=== PATIENT | female | born 1995 | race Caucasian/White ===

== ENCOUNTER 2018-11-18 10:49 | Inpatient (IN) | payer BC, OTHER ==
--- OUTSIDE RECORDS SUMMARY | 2018-11-18 17:56 | XMS REPORT ---
:1995 [facility] Address [address] [place] [address] Dr. Fuchs. [address] [place] [id number] Care Team Providers Name Role Phone Unavailable Unavailable Unavailable Problems This patient has no known problems. Allergies, Adverse Reactions, Alerts This patient has no known allergies or adverse reactions. Medications This patient has no known medications.
[2018-11-18] MEDS ORDERED: Ringers Lactate 1,000 ML IV PRN (18:26)
[2018-11-18] MEDS ORDERED: BUTORPHANOL 1 MG/ML INJ IV PRN (18:26)
[2018-11-18] MEDS ORDERED: METHYLERGONOVINE 0.2MG/ML AMP IM PRN (18:26)
[2018-11-18] MEDS ORDERED: PROMETHAZINE 25 MG/ML VIAL IV PRN ×2 (18:26)
[2018-11-18] MEDS ORDERED: CARBOPROST TROME 250 MCG/ML IM PRN (18:26)
[2018-11-18 18:38] VITALS: BMI 30.4
[2018-11-18] MEDS ORDERED: Ringers Lactate 1,000 ML IV SCH (19:00)
[2018-11-18 19:16] LABS: Urine Appearance TURBID; Urine Blood NEGATIVE (NEG); Urine Color DK YELLOW; Urine Glucose NEGATIVE (NEG); Urine Microscopic Reflex ORDER UMIC; Urine Protein 1+ (NEG); Urine Specific Gravity >=1.030 (1.005-1.030)
[2018-11-18] MEDS ORDERED: miSOPROStol 100 MCG TAB ONE (19:33)
[2018-11-18 19:34] LABS: Urine Amorphous Sediment 1+ /HPF (NONE SEEN); Urine Bacteria LOADED /HPF (<20); Urine Culture Reflex Order REFLEXED; Urine RBC <5 /HPF (NONE SEEN)
[2018-11-18 19:41] LABS: Absolute Lymphocytes (CBC) 2.6 K/uL (0.7-4.9); Basophils % 0.2 % (0-1.3); Hematocrit 30.9 % (36.0-45.0); MPV 9.4 fL (7.6-11.3)
[2018-11-18] MEDS ORDERED: miSOPROStol 100 MCG TAB VAG PRN (19:57)
[2018-11-18] MEDS ORDERED: ZOLPIDEM TARTRATE 5 MG TABLET PO PRN (19:57)
[2018-11-18 20:05] LABS: Urine Bilirubin 1+ (NEG)
[2018-11-19 00:15] LABS: RPR (Rapid Plasma Reagin) NON-REACT (NON-REACT)
[2018-11-19] MEDS ORDERED: FENTANYL CITR 100 MCG/2 ML IV ONE (07:37)
[2018-11-19] MEDS ORDERED: ROPIVACAINE HCL 100 ML IV PRN (07:38)
[2018-11-19] MEDS ORDERED: ROPIVACAINE HCL 2 MG/ML 100ML IV ONE (07:40)
[2018-11-19] MEDS ORDERED: OXYTOCIN/LR 20 UNIT/1,000 ML BAG IV ONE ×2 (08:58→23:44)
[2018-11-19] MEDS ORDERED: ROPIVACAINE HCL 0 ML ONE (09:56)
[2018-11-19] MEDS ORDERED: METOCLOPRAMIDE 10 MG/2mL INJ ONE (10:48)
[2018-11-19] MEDS ORDERED: FENTANYL CITR 250 MCG/5 ML ONE (10:49)
[2018-11-19] MEDS ORDERED: OXYTOCIN 10 UNIT/ML ML IV ONE (10:49)
[2018-11-19] MEDS ORDERED: EPHEDRINE SULF 50 MG/ML VIAL ONE (10:49)
[2018-11-19] MEDS ORDERED: CEFAZOLIN/SWI 1gm 1 GM/10 ML SYR ONE (10:49)
[2018-11-19] MEDS ORDERED: MORPHINE SULFATE/PF 1 MG/ML (10 ML AMP) ONE (10:49)
[2018-11-19] MEDS ORDERED: NA CIT/CITRIC AC 30 ML ORAL UDC ONE (10:49)
[2018-11-19] MEDS ORDERED: FAMOTIDINE 20 MG/2 ML VIAL IV ONE (10:50)
[2018-11-19] MEDS ORDERED: PROPOFOL 200 MG/20 ML VIAL IV ONE (10:53)
[2018-11-19] MEDS ORDERED: SUCCINYLCHOLINE 20 MG/ML (10 ML) IV ONE (10:54)
[2018-11-19] MEDS ORDERED: ONDANSETRON 4 MG/2 ML VIAL ONE (11:51)
[2018-11-19] MEDS ORDERED: METHYLERGONOVINE 0.2 MG TAB PO PRN (12:10)
[2018-11-19] MEDS ORDERED: BISACODYL 10 MG RECTAL SUPP RECT PRN (12:10)
[2018-11-19] MEDS ORDERED: Oxycodone HCl/Acetaminophen 1 TAB TAB PO PRN (12:10)
[2018-11-19] MEDS ORDERED: DOCUSATE NA/SENNA CONC 1 TAB PO PRN (12:10)
[2018-11-19] MEDS ORDERED: ONDANSETRON 4 MG (ODT) TAB PO PRN (12:10)
[2018-11-19] MEDS ORDERED: ACETAMINOPHEN 500 MG TAB PO PRN (12:10)
[2018-11-19] MEDS ORDERED: KETOROLAC 30 MG/ML INJ IV PRN (12:13)
[2018-11-19] MEDS ORDERED: NALOXONE 0.4 MG/ML VIAL IV PRN (12:13)
[2018-11-19] MEDS ORDERED: MORPHINE/NS PCA 50 MG/50 ML PCA.SYRING IV PRN (12:13)
[2018-11-19] MEDS ORDERED: IBUPROFEN 400 MG TAB PO PRN (12:13)
--- NOTE | 2018-11-19 12:16 | P.OP ---
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 By this morning she was 1-2 cm dilated at which point rupture of membranes was performed. Prior to rupture of membranes category II tracing was seen and intrauterine resuscitation was performed. Fetus responded well. Following this epidural was requested by the patient however prior to that heart rate monitoring revealed category III heart tracing with a bradycardia. Decision was then made to do an emergency section. Procedure: The patient was taken to the operating room where general anesthesia was administered without difficulty. The patient was prepped and draped in the usual sterile fashion in the dorsal supine position with a leftward tilt. A Pfannenstiel skin incision was made with the scalpel and carried through to the underlying layer of fascia using the scalpel. The fascia was incised in the midline and extended laterally using Scales scissors. Ana clamps were used to elevate the superior aspect of the fascial incision, which was elevated, and the underlying rectus muscles were dissected off bluntly and using Scales scissors. Attention was then turned to the inferior aspect of the fascial incision, which in similar fashion was grasped with Ana clamps, elevated, and the underlying rectus muscles were dissected off bluntly and using the Bovie. The rectus muscles were dissected in the midline. The peritoneum was identified and entered using Metzenbaum scissors; this incision was extended superiorly and inferiorly with good visualization of the bladder. The bladder blade was inserted. The vesicouterine peritoneum was identified and entered sharply using Metzenbaum scissors. This incision was extended laterally and the bladder flap was created digitally. The bladder blade was reinserted. The lower uterine segment was incised in a transverse fashion using the scalpel and extended using manual traction. Clear fluid was noted. The infant was subsequently delivered. Kiwi vacuum was used to help elevate the head to the incision. The nose and mouth were bulb suctioned. The cord was clamped and cut. The was subsequently handed to the awaiting nursery nurse. The placenta was delivered spontaneously intact with a three- vessel cord noted. The uterus was exteriorized and cleared of all clots and debris. The uterine incision was repaired in 2 layers using 0 vicryol sutures. Hemostasis was visualized. The vesical uterine peritoneum was reapproximated with 3 O Vicryl. The uterus was returned to the abdomen. The uterine incision was reexamined and it was noted to be hemostatic. The rectus muscles were reapproximated in the midline using 0 Vicryl. The fascia was closed with 1 Vicryl suture, the subcutaneous layer was closed with 2-0 plain gut, and the skin was closed with 3 O Vicryl on a Andrea needle. Sponge, lap, and instrument counts were correct x2. The patient was stable at the completion of the procedure and was subsequently transferred to the recovery room in stable condition. Complications: None Drain(s): Urinary catheter Transferred to: Recovery Room Condition: Good
[2018-11-19] MEDS ORDERED: Ringers Lactate 1,000 ML IV ONE (17:41)
[2018-11-19] MEDS ORDERED: Ringers Lactate 1,000 ML IV SCH (18:00)
[2018-11-20 04:48] LABS: Absolute Lymphocytes (CBC) 2.4 K/uL (0.7-4.9); Basophils % 0.4 % (0-1.3); Hematocrit 27.1 % (36.0-45.0); Lymphocytes % 14.6 % (15.3-44.8); MPV 9.5 fL (7.6-11.3); RBC Red Blood Cell Count 3.31 M/uL (3.86-4.86)
[2018-11-20] MEDS: Oxycodone HCl/Acetaminophen 1 TAB TAB PO PRN ×3 (13:43→22:35)
[2018-11-21] MEDS: Oxycodone HCl/Acetaminophen 1 TAB TAB PO PRN (02:35)
[2018-11-21 07:03] VITALS: BP 112/48; TEMP 97.8
[2018-11-21] MEDS ORDERED: MEASLES,MUMPS,RUBELLA VAC 0.5ML SQVAC ONE (07:45)
[2018-11-21 21:21] LABS: HBsAG Nonreactive (Nonreactive)
== END 2018-11-21 10:00 | disposition home or self-care (01) | DRG 788 ==
LOC: 2ND-WC 17:54
PROVIDERS: ADMIT Student in an Organized Health Care Education/Training Program; ATTEND Student in an Organized Health Care Education/Training Program
PROC: 3E0P7VZ Introduction of Hormone into Female Reproductive, Via Natural or Artificial Opening (ICD-10-PCS; principal; 2018-11-18)
PROC: 10D00Z1 Extraction of Products of Conception, Low, Open Approach (ICD-10-PCS; 2018-11-19)
PROC: 10907ZC Drainage of Amniotic Fluid, Therapeutic from Products of Conception, Via Natural or Artificial Opening (ICD-10-PCS; 2018-11-19)
DX: O76 Abnormality in fetal heart rate and rhythm complicating labor and delivery (principal); O69.0XX0 Labor and delivery complicated by prolapse of cord, not applicable or unspecified; Z3A.39 39 weeks gestation of pregnancy; Z37.0 Single live birth; Z23 Encounter for immunization
CPT/HCPCS: 36415; 81003; 81015; 85014; 85025; 86592; 86901; 87086; 87088; 87340; 88307; 90471; 90707; J0330; J0595; J0690; J2270; J2405; J2550; J2590; J2704; J2765; J2795; J3010